=== PATIENT | male | born 1945 | race Caucasian/White ===

== ENCOUNTER 2016-09-13 10:31 | Inpatient (IN) | payer BC, MEDICARE ==
[~2016-09-13] VITALS: Ht 172.7 cm; Wt 93.7 kg
[2016-09-13] VITALS (21 sets, daily range): BP systolic 86–161; BP diastolic 56–93; PULSE 44–97; RESP 12–18; TEMP 96–98.5; O2SAT 94–100; Ht 172.7 cm; Wt 93.7 kg
[~2016-09-13 10:31] MED LIST: ACIT25CA3 PO; ASPI-557 PO; AZEL137S11 NAS; CEFAZOLIN 1 GRAM INJECTION IV ONE; CETI-269 PO; CLOB59LO TOP; HEPARIN SUB-Q 5,000 unit/0.5ml vial SQ ONE; LIDOCAINE 1% (10mg/ml) 2ml SDV INJ ONE
--- OUTSIDE RECORDS SUMMARY | 2016-09-13 10:36 | XMS REPORT ---
Author Author Jed Lehman Organization Unknown Address [address], [place] [id number] Phone Care Team Providers Care Pmo Project Manager Name Role Phone Maura GIORDANO PP Unavailable Unavailable Reason for Referral No Reason for Referral was given. Chief Complaint HCPA Text Box CC: 1 month f/u appt after heart cath. History of Present Illness No HPI available. Problems * Coronary Artery Disease Last Assessed: 10/29/2012 9:02:36 AM (414.00); (Active) * Benign Essential Hypertension Last Assessed: 10/29/2012 9:02:41 AM (401.1); (Active) * Hyperlipidemia Last Assessed: 10/29/2012 9:02:44 AM (272.4); (Active) * Normal Routine History And Physical Senior Citizen (65-80) (V70.0); ( Active) * Allergies (V15.09); (Active) * Taking High-risk Medication (V58.69); (Active) * Psoriasis (696.1); (Active) * Angioedema (995.1); (Active) * Urticaria (708.9); (Active) * Chest Pain (786.50); (Active) * Difficulty Breathing (Dyspnea) (786.09); (Active) Medication * Vitamins/Minerals Oral Tablet; zinc 50mg; Start Date: 12/17/2010 (Active) * Calcium 600 600 MG Oral Tablet; TAKE 1 TABLET DAILY.; Start Date: 08/11/2011 ( Active) * Vitamin D3 1000 UNIT Oral Capsule; TAKE DIRECTED.; Start Date: 08/11/2011 ( Active) * Clobetasol Propionate 0.05 % External Ointment; apply to affected areas bid prn, avoid groin; Start Date: 02/03/2012; End Date: (Active) * Methotrexate 2.5 MG Oral Tablet; TAKE FOUR TABLETS BY MOUTH ONCE A WEEK; Start Date: 12/24/2010; End Date: (Active) * Folic Acid 1 MG Oral Tablet; TAKE 1 TABLET DAILY.; Start Date: 01/31/2011; End Date: (Active) * Losartan Potassium-HCTZ 100-12.5 MG Oral Tablet; TAKE 1 TABLET BY MOUTH DAILY ; Start Date: 08/27/2012 (Active) * Pravastatin Sodium 40 MG Oral Tablet; TAKE 1 TABLET DAILY AT BEDTIME.; Start Date: 08/27/2012 (Active) * Aspirin 81 MG Oral Tablet; TAKE 1 TABLET DAILY.; Start Date: 10/08/2012 ( Active) * Brilinta 90 MG Oral Tablet; Take one tablet twice daily; Start Date: 2012 (Active) Allergies and Adverse Reactions * No Known Drug Allergies (Active) Past Medical History * No Significant Medical History Family History * Family history of Hay Fever (Active) * Paternal history of Stroke Syndrome (V17.1); (Active) * Maternal history of Stroke Syndrome (V17.1); (Active) Social History * Racial Background (___ %) (Active) * Never A Smoker (Active) * Alcohol Use (Active) * Marital History - Currently (Active) * Retired From Work (Active) Vital Signs Date Description Test Result 29 Oct 2012 08:51 AM recorded by: Mary Gamez BP Systolic 128 mm[Hg] BP Diastolic 88 mm[Hg] Pulse Regular Heart Rate 60 /min Treatment Plan * CP Dobutamine Echo 09/24/2012 Routine * CP Echo 09/24/2012 Routine Advance Directives * No Advance Directives available. Encounters * Appointment 10/29/2012 * RTNPT , Provider: Thad Cross, Status: Justino , Time: 8:30 AM 07/2012 * RTNPT , Provider: Dominik Adkins, Status: Justino , Time: 9:15 AM 2012
--- OUTSIDE RECORDS SUMMARY | 2016-09-13 10:36 | XMS REPORT | Summary of Care ---
Author Author Tay Oneil M.D. Unknown Address [address] [place], [place] [id number] Phone Unavailable Care Team Providers Care Lime Hide Inspector Name Role Phone Jed Lehman D.O. Unavailable Unavailable Ramila Oneil M.D. Unavailable Unavailable Tiffanie Hilton PP Unavailable Unavailable Unavailable Functional Status Functional Status Health Issues* Name Dates Details Functional status health issues are not documented Status: Cognitive Status Health Issues* Name Dates Details Cognitive status health issues are not documented Status: Problems Name Dates Details Difficulty breathing (786.09, R06.89) Status: Active History of allergy (V15.09, Z88.9) Status: Active Angioedema (995.1, T78.3XXA) Status: Active Psoriasis (696.1, L40.9) Status: Active Urticaria (708.9, L50.9) Status: Active Chest pain (786.50, R07.9) Status: Active High risk medication use (V58.69, Z79.899) Status: Active Atherosclerotic heart disease of [place] coronary artery without angina pectoris (414.01, I25.10) Status: Active Hyperlipidemia (272.4, E78.5) Status: Active Benign essential hypertension (401.1, I10) Status: Active Obesity (BMI 30.0-34.9) (278.00, E66.9) Status: Active Medications Name Dates Details Methotrexate 2.5 MG Oral Tablet TAKE FOUR TABLETS BY MOUTH ONCE A WEEK Quantity: 48 Tay Oneil M.D.* Started ActiveFolic Acid 1 MG Oral Tablet TAKE 1 TABLET DAILY. * Quantity: 30 Refills: 11 Tay Oneil M.D.* Started 31-Jan-2011 ActiveClobetasol Propionate 0.05 % External Ointment apply to affected areas bid prn, avoid groin * Quantity: 1 Refills: 5 Tay Oneil M.D.* Started 03-Feb-2012 [id number] GM Tube Losartan Potassium-HCTZ 100-12.5 MG Oral Tablet TAKE 1 TABLET BY MOUTH DAILY * Quantity: 30 Refills: 4 * Started 27-Aug-2012 ActivePravastatin Sodium 40 MG Oral Tablet TAKE 1 TABLET DAILY AT BEDTIME. * Refills: 0 * Started 27-Aug-2012 ActiveAspirin 81 MG Oral Tablet TAKE 1 TABLET DAILY. * Quantity: 30 Refills: 0 Jed Lehman D.O.* Started 08-Oct-2012 Active Allergies and Adverse Reactions Name Dates Details No Known Drug Allergies Status: Active Procedures Procedure Dates Details History of Coronary Angiography Without Concomitant Left Heart Catheterization Completed:12-Oct-2012 Procedures not documented Immunization Name Dates Details Immunizations not documented Family History Unknown Family Member* Name Dates Details Family history of Hay Fever Comments: Family History Status: Active Mother* Name Dates Details Family history of Stroke Syndrome (V17.1) Status: Active Father* Name Dates Details Family history of Stroke Syndrome (V17.1) Status: Active Social History Name Dates Details Smoking Status* Never smoker Vital Signs Date Test Result Details No Known Vitals to report Results Date Description Value Details Results not documented Plan of Care Planned Observations* Name Dates Details Planned Goals not documented Goal Planned Encounters* Appointment; Provider: Tay Oneil On 28-Sep-2015 08:30 * Appointment; Provider: Amador Tillman On 30-Mar-2015 09:00 * Appointment; Provider: Jed Lehman On 12-Oct-2012 12:30 Instructions * Instructions not documented Encounters Appointment; Tay Oneil Encounter Diagnosis: Problem not documented On 25-Sep-2014 08:30 Appointment; Amador Tillman Encounter Diagnosis: Problem not documented On 31-Mar-2014 10:30 Appointment; Jed Lehman Encounter Diagnosis: Problem not documented On 28-Oct-2013 09:30 Appointment; Tay Oneil Encounter Diagnosis: Problem not documented On 19-Sep-2013 08:30 Appointment; Jed Lehman Encounter Diagnosis: Problem not documented On 29-Apr-2013 11:30 Appointment; Tay Oneil Encounter Diagnosis: Problem not documented On 20-Mar-2013 08:30 Appointment; Jed Lehman Encounter Diagnosis: Problem not documented On 29-Oct-2012 08:45 Appointment; Jed Lehman Encounter Diagnosis: Problem not documented On 08-Oct-2012 10:45
--- OUTSIDE RECORDS SUMMARY | 2016-09-13 10:36 | XMS REPORT | Summary of Care ---
Author Author Amador Tillman M.D. Unknown Address [address] [place] [address] Phone Unavailable Care Team Providers Care Towel Cabinet Repairer Name Role Phone Jed Lehman D.O. Unavailable Unavailable Ramila Oneil M.D. Unavailable Unavailable Tiffanie Hilton PP Unavailable Unavailable Unavailable Functional Status Functional Status Health Issues* Name Dates Details Functional status health issues are not documented Status: Cognitive Status Health Issues* Name Dates Details Cognitive status health issues are not documented Status: Problems Name Dates Details History of allergy (V15.09, Z88.9) Status: Active Angioedema (995.1, T78.3XXA) Status: Active Urticaria (708.9, L50.9) Status: Active High risk medication use (V58.69, Z79.899) Status: Active Psoriasis (696.1, L40.9) Status: Active Atherosclerotic heart disease of [place] coronary artery without angina pectoris (414.01, I25.10) Status: Active Benign essential hypertension (401.1, I10) Status: Active Hyperlipidemia (272.4, E78.5) Status: Active Obesity (BMI 30.0-34.9) (278.00, E66.9) Status: Active Medications Name Dates Details Methotrexate 2.5 MG Oral Tablet TAKE FOUR TABLETS BY MOUTH ONCE A WEEK Quantity: 48 Tay Oneil M.D.* Started ActiveFolic Acid 1 MG Oral Tablet TAKE 1 TABLET DAILY. * Quantity: 30 Refills: 11 Tay Oneil M.D.* Started 31-Jan-2011 ActiveLosartan Potassium-HCTZ 100-12.5 MG Oral Tablet TAKE 1 TABLET BY MOUTH DAILY * Quantity: 30 Refills: 4 * Started 27-Aug-2012 ActivePravastatin Sodium 40 MG Oral Tablet TAKE 1 TABLET DAILY AT BEDTIME. * Refills: 0 * Started 27-Aug-2012 ActiveAspirin 81 MG Oral Tablet TAKE 1 TABLET DAILY. * Quantity: 30 Refills: 0 Jed Lehman D.O.* Started 08-Oct-2012 ActiveAzelastine HCl - 0.1 % Nasal Solution INSERT 2 SQUIRTS IN EACH NOSTRIL TWICE DAILY * Refills: 0 * Started 30-Mar-2015 ActiveCetirizine HCl - 10 MG Oral Tablet TAKE 1 TABLET DAILY. * Refills: 0 * Started 30-Mar-2015 ActiveClotrimazole 1 % External Cream APPLY 2-3 TIMES DAILY TO AFFECTED AREA(S). * Refills: 0 * Started 30-Mar-2015 Active Allergies and Adverse Reactions Name Dates Details No Known Drug Allergies Status: Active Past Medical History Name Dates Details History of chest pain (V13.89, Z87.898) Status: Resolved History of Difficulty breathing (786.09, R06.89) Status: Resolved Procedures Procedure Dates Details History of Coronary [...] smoker Vital Signs Date Test Result Details 30-Mar-2015 08:54 BP Systolic 130 mm[Hg] Status: BP Diastolic 84 mm[Hg] Status: Heart Rate 56 /min Status: Weight 213.0 lb Status: Body Mass Index Calculated 32.87 kg/m2 Status: Body Surface Area Calculated 2.09 m2 Status: Results Date Description Value Details Results not documented Plan of Care Planned Observations* Name Dates Details Planned Goals not documented Goal Planned Encounters* Appointment; Provider: Amador Tillman On 30-Mar-2016 09:00 * Appointment; Provider: Tay Oneil On 28-Sep-2015 08:30 * Appointment; Provider: Jed Lehman On 12-Oct-2012 12:30 Instructions * Instructions not documented Encounters Appointment; Amador Tillman Encounter Diagnosis: Problem not documented On 30-Mar-2015 09:00 Appointment; Tay Oneil Encounter Diagnosis: Problem not documented On 25-Sep-2014 08:30 Appointment; Amador Tillman Encounter Diagnosis: Problem not documented On 31-Mar-2014 10:30 Appointment; Jed Lehman Encounter Diagnosis: Problem not documented On 28-Oct-2013 09:30 Appointment; Tay Oneil Encounter Diagnosis: Problem not documented On 19-Sep-2013 08:30 Appointment; Jed Lehman Encounter Diagnosis: Problem not documented On 29-Apr-2013 11:30
--- OUTSIDE RECORDS SUMMARY | 2016-09-13 10:36 | XMS REPORT | Summary of Care ---
Author Author Primo Recinos, Amador Ontiveros Unknown Address [address] [place] [address] Phone Unavailable Care Team Providers Care Offal Worker Name Role Phone Jed Lehman D.O. Unavailable [...] Z79.899) Status: Active Atherosclerotic heart disease of [place] coronary artery without angina pectoris (414.01, I25.10) [...] 1 TABLET DAILY. * Quantity: 30 Refills: 8 Tay Oneil M.D.* Started 31-Jan-2011 ActiveClobetasol Propionate 0.05 % External Ointment apply to affected areas bid prn, avoid groin * Quantity: 1 Refills: 5 Tay Oneil M.D.* Started 03-Feb-2012 [id number] GM Tube Losartan Potassium-HCTZ 100-12.5 MG Oral [...] Planned Encounters* Appointment; Provider: Amador Tillman On 30-Mar-2015 09:00 * Appointment; Provider: Tay Oneil On 25-Sep-2014 08:30 * Appointment; Provider: Jed Lehman On [...] Diagnosis: Problem not documented On 08-Oct-2012 10:45 Appointment; Tay Oneil Encounter Diagnosis: Problem not documented On 17-Sep-2012 08:30 Appointment; Jed Lehman Encounter Diagnosis: Problem not documented On 27-Aug-2012 10:45
--- OUTSIDE RECORDS SUMMARY | 2016-09-13 10:36 | XMS REPORT | Summary of Care ---
Author Author Tay Oneil M.D. Unknown Address [address] [place], [place] [id number] Phone Unavailable Care Team Providers Care Green Building Energy Engineer Name Role Phone Jed Lehman D.O. Unavailable [...] L40.9) Status: Active Atherosclerotic heart disease of [place] coronary artery without angina pectoris (414.01, I25.10) Status: Active Benign essential hypertension (401.1, I10) Status: Active Hyperlipidemia (272.4, E78.5) Status: Active Obesity (BMI 30.0-34.9) (278.00, E66.9) Status: Active Medications Name Dates Details Methotrexate 2.5 MG Oral Tablet TAKE FOUR TABLETS BY MOUTH ONCE A WEEK Quantity: 48 Tay Oneil M.D.* Started ActiveFolic Acid 1 MG Oral Tablet TAKE ONE TABLET BY MOUTH ONCE DAILY * Quantity: 90 Refills: 0 Tay Oneil M.D.* Started 31-Jan-2011 ActivePravastatin Sodium 40 MG Oral Tablet TAKE [...] Planned Encounters* Appointment; Provider: Tay Oneil On 26-Sep-2016 10:30 * Appointment; Provider: Jed Lehman On 12-Oct-2012 12:30 Instructions * Instructions not documented Encounters Appointment; Tay Oneil Encounter Diagnosis: Problem not documented On 25-Sep-2015 08:30 Appointment; Amador Tillman Encounter Diagnosis: Problem not documented On 30-Mar-2015 09:00 Appointment; Tay Oneil Encounter Diagnosis: Problem not documented On 25-Sep-2014 08:30 Appointment; Amador Tillman Encounter Diagnosis: Problem not documented On 31-Mar-2014 10:30 Appointment; Jed Lehman Encounter Diagnosis: Problem not documented On 28-Oct-2013 09:30
[2016-09-13 11:22] LABS: BASOPHILS % (AUTO) 0.7 % (0-2); EOSINOPHILS # (AUTO) 0.1 T/MM3 (0-0.5); EOSINOPHILS % (AUTO) 1.7 % (0-4); HCT - HEMATOCRIT 47.4 % (41-53); IMMATURE GRANULOCYTE # (AUTO) 0.01 T/MM3 (0.00-0.03); IMMATURE GRANULOCYTE % (AUTO) 0.2 % (0.0-0.5); LYMPHOCYTES # (AUTO) 1.6 T/MM3 (1-4.8); LYMPHOCYTES % (AUTO) 27.1 % (23-45); MEAN CORPUSCULAR HGB 32.2 UUG (26-34); MEAN CORPUSCULAR HGB CONC(MCHC 33.8 GM/DL (31-37); MEAN CORPUSCULAR VOLUME 95.4 UM3 (80-100); MEAN PLATELET VOLUME 11.4 UM3 (9.4-12.4); MONOCYTES # (AUTO) 0.4 T/MM3 (0-0.8); MONOCYTES % (AUTO) 7.5 % (0-9.0); NEUTROPHILS #(AUTO)-ABSOLUTE 3.6 T/MM3 (1.8-7.7); NEUTROPHILS % (AUTO) 62.8 % (33-66); RED BLOOD COUNT 4.97 M/MM3 (4.50-5.90); WBC - WHITE BLOOD COUNT 5.7 T/MM3 (4.5-11.0)
[2016-09-13 11:32] LABS: ANION GAP 9 MEQ/L (5-15); BUN/CREATININE RATIO 12 RATIO (6-26); CALCIUM 9.6 MG/DL (8.4-10.2); CHLORIDE 107 MEQ/L (98-107); CO2 - CARBON DIOXIDE 27 MEQ/L (22-30); CREATININE 1.1 MG/DL (0.8-1.5); GLOMERULAR FILTRATION RATE 66; GLUCOSE 100 MG/DL (75-110); POTASSIUM 4.6 MEQ/L (3.6-5); SODIUM 143 MEQ/L (134-144)
--- NOTE | 2016-09-13 11:42 | ANESPREOP ---
Anesthesia Record Date and Time DATE: 09/13/16 TIME: 11:38 Pre-Op Diagnosis prostate ca Proposed Surgical Procedure ROBOTIC RADICAL PROSTATECTOMY NPO since: mn Allergies: Coded Allergies: No Known Drug Allergies (Verified Allergy, Unknown, 09/12/16) Ht/Wt/BMI Height: 5 ' 8.00 " Weight: 92.500 kg BMI: 31.0 kg/m2 Vital Signs Date Time Temp Pulse Resp B/P Pulse Ox O2 Delivery O2 Flow Rate FiO2 09/13/16 11:24 54 09/13/16 11:11 98.5 14 161/88 98 Room Air Medications Acitretin (Acitretin) 25 Mg Capsule, 1 CAP PO DAILY, (Reported) Last Taken: on 09/12/162099 Aspirin (Aspir 81) 81 Mg Tablet.dr, 1 TAB PO DAILY, (Reported) Last Taken: on 09/05/16 Azelastine HCl (Azelastine HCl) 137 Mcg/0.137 Ml Bowie.pump, 2 SPRAY SYLVIA BID PRN for PRN ORDERS, (Reported) Last Taken: on Unknown Date & Time Cetirizine HCl (Cetirizine HCl) 10 Mg Tablet, 1 TAB PO DAILY, (Reported) Last Taken: on 09/12/162099 Clobetasol Propionate (Clobex) 59 Applic/59 Ml Lotion, 1 UNIT TOP DAILY PRN for PRN ORDERS, (Reported) Last Taken: on 09/11/16 Currently on Beta Andrew: No Medical/Surgical History Anesthesia PMH: Reports: *Hypertension (PER H&P), Arthritis (KNEES,HANDS), Cancer (PROSTATE), Denies: *Diabetes, Anesthesia Reactions (NO AIRWAY ISSUES), Clotting Problems, Glaucoma, Malignant Hyperthermia, Renal Disease, Thyroid Disease Smoking Status: Never smoker Has pt. smoked today?: No Use Chewing Tobacco?: No Second Hand Exposure: No Substance Use Type: does not use Alcohol Intake: daily Last Drink: days (ago) Past Surgical History Orthopedic Surgeries: Yes - R KNEE SCOPE Abdominal Surgeries: Genitourinary Surgeries: Cardiac Surgeries: Yes - HEART CATH WITH STENT Endocrine Surgeries: Reproductive Surgeries: Neurological Surgeries: Ear Surgeries: Nose Surgeries: Throat Surgeries: Other Surgeries: Anesthesia Adverse Reactions: FOUND none Pertinent Findings Laboratory Tests 09/13/16 11:07 EKG Rhythm: Sinus Rhythm Physical Exam Respiratory: Bilat breath sounds equal, Lungs clear Cardiovascular: FOUND Regular rate, rhythm, FOUND No murmur Airway Assessment Mallampati Score: III TMD: 3 Fingerbreadths Neck Extension: Fair Overall Assessment: May Be Diff Intubation ASA: 3 Plan Anesthesia Plan: GETA Discussion Discussed risks/options/alternatives of anesthesia and questions answered. Patient consents. Nursing pain assessment noted. Attestation Statement Prior to the delivery of any anesthetic medication, I examined the patient, developed the plan, obtained the patient's consent and discussed the risk and benefits of the procedure with the patient/guardian. SARAH CRUMP PROJECT SUPERINTENDENT Sep 13, 2016 11:41
[2016-09-13] MEDS ORDERED: SCOPOLAMINE 1.5 MG PATCH TD ONE (11:45)
[2016-09-13] MEDS ORDERED: LR 1,000 ML IV PRN (11:52)
[2016-09-13] MEDS ORDERED: LIDOCAINE JELLY 2% 20ml UROJET MM ONE (12:21)
[2016-09-13] MEDS ORDERED: BUPIVACAINE 0.25%/EPI 1:200,000 30ml SDV ONE (14:51)
[2016-09-13] MEDS ORDERED: OXYBUTYNIN IR 5 MG TABLET PO PRN (15:00)
[2016-09-13] MEDS ORDERED: MORPHINE SULFATE 4 MG SYRINGE IV PRN (15:00)
[2016-09-13] MEDS ORDERED: ONDANSETRON 4mg/2ml INJECTION IV PRN ×2 (15:00→19:15)
[2016-09-13] MEDS ORDERED: BISACODYL 10 MG SUPPOSITORY RECTALLY PRN (15:00)
[2016-09-13] MEDS ORDERED: MILK OF MAGNESIA 30 ML SUSP PO PRN (15:00)
[2016-09-13] MEDS ORDERED: KETOROLAC 15mg/ml INJECTION IV PRN (15:00)
[2016-09-13] MEDS ORDERED: PROMETHAZINE 50 MG INJECTION IM PRN (15:00)
[2016-09-13] MEDS ORDERED: PROMETHAZINE 25 MG TABLET PO PRN (15:00)
[2016-09-13] MEDS ORDERED: PROPOFOL 200mg 20 ML IV ONE (15:15)
[2016-09-13] MEDS ORDERED: FENTANYL 250mcg/5ml INJECTION ONE (15:15)
[2016-09-13] MEDS ORDERED: ROCURONIUM 50mg/5ml INJECTION IV ONE (15:15)
[2016-09-13] MEDS ORDERED: EPHEDRINE SULFATE 50mg/ml INJECTION ONE (15:29)
[2016-09-13] MEDS ORDERED: VECURONIUM 10mg/10ml INJECTION IV ONE (16:14)
[2016-09-13] MEDS ORDERED: DESFLURANE 240 ML LIQUID IH ONE (16:16)
[2016-09-13] MEDS ORDERED: HYDROMORPHONE 2mg/ml INJECTION ONE (16:50)
[2016-09-13] MEDS ORDERED: DEXAMETHASONE 4mg/ml - 1ml INJECTION ONE (16:51)
[2016-09-13] MEDS ORDERED: ONDANSETRON 4mg/2ml INJECTION ONE (16:51)
--- NOTE | 2016-09-13 19:05 | NUR ---
orders dr. delgado called this rn and gave orders via telephone for pt to sit in chair tonight, Clear liquids for tonight and regular diet for breakfast. no other orders at this time.
[2016-09-13] MEDS ORDERED: METOCLOPRAMIDE 10mg/2ml INJECTION IV PRN (19:15)
[2016-09-13] MEDS ORDERED: HYDROMORPHONE 2mg/ml INJECTION IV PRN (19:15)
--- NOTE | 2016-09-13 19:18 | ANESPO ---
Post-Op Note Date 09/13/16 Time: 19:17 Status Pt Participated in Evaluation: Pt participated in person Vital Signs Date Time Temp Pulse Resp B/P Pulse Ox O2 Delivery O2 Flow Rate FiO2 09/13/16 14:41 44 14 148/82 98 Room Air 09/13/16 11:11 98.5 Respiratory Function: Airway patent Cardiovascular Function: Regular pulse Telemetry Pattern: SR Mental Status: Alert/oriented Pain Level Intensity: 0 Hydration: IV infusing Complications during Recovery None apparent Follow-Up Instructions Instructions Per Surgeon MARKO CORRAL CRNA Sep 13, 2016 19:18
--- NOTE | 2016-09-13 19:35 | NUR ---
report report received from jay lama in pacu at this time.
--- NOTE | 2016-09-13 19:45 | NUR ---
admit pt admitted to room 108 via cart from pac[facility] at this time.
[2016-09-13] MEDS: D5-1/2 NS KCL 20 MEQ 1,000 ML IV SCH ×2 (20:23→22:50)
[2016-09-13] MEDS: SENNA + DOCUSATE TAB PO SCH (21:15)
--- NOTE | 2016-09-14 01:38 | NUR ---
Chart Check 24 hour chart check completed
--- NOTE | 2016-09-14 02:10 | NUR ---
low output I notified dr. delgado of pts low output via sp and deras catheter. pt had output of 60ml in 3 hours, rn irrigated with 50ml sterile ns-with results of 125ml. dr. delgado said we will wait and see if output increases and call at 0600 if urine output < 20ml/hr. this rn verbalized understanding and orders implemented. will continue to monitor.
[2016-09-14 04:04] VITALS: BP 111/57; PULSE 52; RESP 14; TEMP 97.8; O2SAT 98
[2016-09-14 04:50] VITALS: O2SAT 97
[2016-09-14 04:53] VITALS: O2SAT 94
--- NOTE | 2016-09-14 06:05 | NUR ---
shift summary pt has slept off and on during the night. pt given toradol for pain, see emar for times. pt denies need for pain meds since toradol given. denies n/v/soa. pt has tolerated clear liquids throughout the night. deras catheter output of 675 this am. kirt drain with a total of 100ml of sangineous fluid. dressing on suprapubic catheter c/d/i. ivl in left hand. vss, pt on ra at this time, previously 1L o2 overnight. bed locked and low, bed alarm on. call light within reach. will continue to monitor.
[2016-09-14 06:14] LABS: HCT - HEMATOCRIT 38.5 % (41-53)
[2016-09-14 06:25] LABS: ANION GAP 7 MEQ/L (5-15); BUN/CREATININE RATIO 14 RATIO (6-26); CALCIUM 8.3 MG/DL (8.4-10.2); CHLORIDE 105 MEQ/L (98-107); CO2 - CARBON DIOXIDE 27 MEQ/L (22-30); GLOMERULAR FILTRATION RATE 74; GLUCOSE 149 MG/DL (75-110); MAGNESIUM 2.6 MG/DL (1.6-2.3); POTASSIUM 5.1 MEQ/L (3.6-5); SODIUM 139 MEQ/L (134-144)
[2016-09-14] MEDS: D5-1/2 NS KCL 20 MEQ 1,000 ML IV SCH (06:50)
[2016-09-14] MEDS: ACETAMINOPHEN 325 MG TABLET PO PRN ×2 (07:38→15:27)
[2016-09-14 07:44] VITALS: BP 117/69; PULSE 57; RESP 15; RESP 16; TEMP 97.5; O2SAT 96
[2016-09-14] MEDS: SENNA + DOCUSATE TAB PO SCH (08:31)
[2016-09-14 12:18] VITALS: BP 132/71; PULSE 64; RESP 16; TEMP 96.8; O2SAT 99
[2016-09-14] MEDS ORDERED: PNEUMOCOCCAL 13 VACCINE 0.5 ML SYRINGE IM ONE (14:30)
[2016-09-14] MEDS ORDERED: PNEUMOCOCCAL VAC. ADMIN. CHARGE INJ ONE (15:00)
[2016-09-14] MEDS ORDERED: THROMBIN 5000 UNIT TOP ONE (15:17)
[2016-09-14 16:00] VITALS: BP 134/77; PULSE 65; RESP 18; TEMP 97.5; O2SAT 97
--- NOTE | 2016-09-14 16:10 | DSPDOC ---
General Date Date DATE: 09/14/16 TIME: 16:05 Attending Physician Buck Mann Admitting Physician Buck Mann Consulting Physician Admitting Diagnosis prostate cancer Discharge Diagnosis Same Procedures RALRP with BPLND and SP tube placement Laboratory Laboratory Tests Test 09/13/16 11:07 09/14/16 04:00 09/14/16 05:37 White Blood Count 5.7T/MM3 (4.5-11.0) Red Blood Count 4.97M/MM3 (4.50-5.90) Hemoglobin 16.0GM/DL (13.5-17.5) 13.0GM/DL (13.5-17.5) Hematocrit 47.4% (41-53) 38.5% (41-53) Mean Corpuscular Volume 95.4UM3 (80-100) Mean Corpuscular Hemoglobin 32.2UUG (26-34) Mean Corpuscular Hemoglobin Concent 33.8GM/DL (31-37) RDW Standard Deviation 44.3FL (36.9-50.2) Platelet Count 155T/MM3 (130-400) Mean Platelet Volume 11.4UM3 (9.4-12.4) Immature Granulocyte % (Auto) 0.2% (0.0-0.5) Neutrophils (%) (Auto) 62.8% (33-66) Lymphocytes (%) (Auto) 27.1% (23-45) Monocytes (%) (Auto) 7.5% (0-9.0) Eosinophils (%) (Auto) 1.7% (0-4) Basophils (%) (Auto) 0.7% (0-2) Absolute Immature Granulocyte (auto 0.01T/MM3 (0.00-0.03) Absolute Neutrophils (auto) 3.6T/MM3 (1.8-7.7) Absolute Lymphocytes (auto) 1.6T/MM3 (1-4.8) Absolute Monocytes (auto) 0.4T/MM3 (0-0.8) Absolute Eosinophils (auto) 0.1T/MM3 (0-0.5) Absolute Basophils (auto) 0.0T/MM3 (0-0.2) Turbidity < 20 (0-20) < 20 (0-20) Sodium Level 143MEQ/L (134-144) 139MEQ/L (134-144) Potassium Level 4.6MEQ/L (3.6-5) 5.1MEQ/L (3.6-5) Chloride Level 107MEQ/L (98-107) 105MEQ/L (98-107) Carbon Dioxide Level 27MEQ/L (22-30) 27MEQ/L (22-30) Anion Gap 9MEQ/L (5-15) 7MEQ/L (5-15) Blood Urea Nitrogen 13.0MG/DL (9-20) 14.0MG/DL (9-20) Creatinine 1.1MG/DL (0.8-1.5) 1.0MG/DL (0.8-1.5) Glomerular Filtration Rate Calc 66 74 BUN/Creatinine Ratio 12RATIO (6-26) 14RATIO (6-26) Glucose Level 100MG/DL (75-110) 149MG/DL (75-110) Calculated Osmolality 275MOSM/KG (261-280) 272MOSM/KG (261-280) Calcium Level 9.6MG/DL (8.4-10.2) 8.3MG/DL (8.4-10.2) Icterus Index < 2 (0-7) < 2 (0-7) Chemistry Specimen Hemolysis < 15 (0-25) < 15 (0-25) Body Fluid Type Carlos drain Body Fluid Creatinine 0.9mg/dL Magnesium Level 2.6MG/DL (1.6-2.3) History of Present Illness Onesimo is a 70 [address] patient of Dr[address] Mann'tere who has a history of prostate cancer and was on active surveillance. He had a recent elevation in his PSA and has chosen to undergo RALRP to remove the prostate. Hospital Course Patient was admitted to [facility] and underwent RALRP with BPLND and SP tube placement. He tolerated the procedure well and was transferred to the surgical floor where he has progressed well. He is now up ambulating well, pain is controlled, and he is tolerating PO intake well with no N/V. To discharge home today with SP tube and following CARLOS and Lopez catheter removal. Leg bag teaching will be provided as well as SP tube care. Problems: Code Status Full Code, unverified Home Meds Reported Medications Clobetasol Propionate (Clobex) 59 Applic/59 Ml Lotion, 1 UNIT TOP DAILY Y for PRN ORDERS 09/12/16 Aspirin (Aspir 81) 81 Mg Tablet.dr, 1 TAB PO DAILY, TAB 09/12/16 Azelastine HCl (Azelastine HCl) 137 Mcg/0.137 Ml Remus.pump, 2 SPRAY SYLVIA BID Y for PRN ORDERS, #90 ML 3 Refills 09/12/16 Cetirizine HCl (Cetirizine HCl) 10 Mg Tablet, 1 TAB PO DAILY, TAB 09/12/16 Acitretin (Acitretin) 25 Mg Capsule, 1 CAP PO DAILY 09/12/16 Face to Face Encounter I met with patient on the day of dismissal and discussed follow up appointments , medications, and safety plan. Discharge Disposition To home. Scripts for pain medications on chart. Copies To 1: BUCK MANN NICHOLAS L APRN Sep 14, 2016 16:09
--- NOTE | 2016-09-14 17:15 | NUR ---
CM TAYLOR SCORE IS 7 Addendum: 09/14/16 at 1715 by MARVIN ROQUE Amended: Links added.
--- NOTE | 2016-09-14 17:16 | NUR ---
CM SPOKE WITH PT, AND WAS PRESENT WITH PT'S PERMISSION. INTRODUCED SELF, EXPLAINED ROLE, PROVIDED CONTACT INFO. PT SAID HE HOPES HE CAN LEAVE TODAY. HE AND LIVE IN [place], AND HE SAID HIS DC PLAN IS TO RETURN HOME. PT AND DENIED ANY DC NEEDS OR CONCERNS. ENCOURAGED THEM TO CALL IF SOME DO ARISE, AND THEY SAID OK. Addendum: 09/14/16 at 1719 by MARVIN ROQUE Amended: Links added.
[2016-09-14] MEDS ORDERED: OXYB5TAB10 PO (17:31)
[2016-09-14] MEDS ORDERED: SENN8.6T94 PO (17:31)
[2016-09-14] MEDS ORDERED: HYDR-4010 PO (17:31)
--- NOTE | 2016-09-14 19:20 | NUR ---
Discharge Pt was discharged at this time via ambulatory status through the main entrance in the company of an adult. IV catheter was DC'd prior to discharge, catheter tip intact. NOVA drain was DC'd, gauze and tape put in place. Urethral catheter was DC'd prior to discharge. Suprapubic catheter in place. Leg bag teaching was done with Pt and sent home with Pt. VS stable on RA. Discharge packet and instructions gone over with Pt. This RN discussed activity, restrictions, diet, medications, follow up appt, catheter care, dressing change and incision care. Prescription was sent with to take to Pts preferred pharmacy.
[2016-09-15] MEDS ORDERED: LIDOCAINE 1% (10mg/ml) 2ml SDV INJ ONE (07:00)
[2016-09-16] MEDS ORDERED: SCOPOLAMINE PATCH REMOVAL TD ONE (12:15)
--- NOTE | 2016-09-16 12:32 | OPNOTEF ---
DATE OF SERVICE 09/13/2016 PREOPERATIVE DIAGNOSIS Prostate cancer. POSTOPERATIVE DIAGNOSIS Prostate cancer. OPERATION PERFORMED Robotic assisted laparoscopic radical prostatectomy, bilateral pelvic lymphadenectomy, suprapubic cystostomy tube placement. SURGEON Buck Long MD VICE PRESIDENT [employer] Joseph Valdes APRN ANESTHESIA General COMPLICATIONS None. DRAINS #18 Danish Lopez. #12 Danish suprapubic tube #15 Danish NOVA drain INDICATIONS This is a 70-year-old gentleman who has been diagnosed with prostate cancer. He is on active surveillance but repeat biopsy showed increased burden of cancer and so he now presents for prostatectomy. On the multiplanar ____ MRI, there was a concerning BIRADS 4 lesion in the left apex. DESCRIPTION OF PROCEDURE After informed consent was obtained, the patient was brought to the operating room, general anesthesia was induced. He was placed in the lithotomy position and prepped and draped in the usual fashion. Time-out was held. He received preoperative IV antibiotics, subcutaneous heparin and SCDs. After the time-out and prepping and draping, we inserted a Lopez catheter per urethra and set it to gravity drainage. The skin above the umbilicus was anesthetized, it was opened sharply in a transverse manner and dissected down to the abdominal wall and a Veress needle passed through the incision into the peritoneal cavity, appropriate pops were felt. Using the aspiration/irrigation/aspiration test and the hanging drop test and then abdomen insufflated appropriately under low flow then high flow insufflation. Once pneumoperitoneum reached 15 mmHg, a dilating 10-12 mm laparoscopic trocar was passed through the incision into the peritoneal cavity. Diagnostic laparoscopy was carried out. There were a few adhesions of the sigmoid colon to the left pelvic sidewall. No other abnormalities were noted. Additional ports were placed including two 8 mm ports in the right lower quadrant and an 8 mm in left lower quadrant, a dilating 10-12 mm in the left lower quadrant and a 5 mm left upper quadrant port. The circulating air vent was placed to the port in the left lower quadrant. Robot was brought into position and docked. Sharp adhesiolysis was carried out to free the tethering sigmoid colon to the left pelvic sidewall. There was a small mesenteric vessel which was bleeding near that site which was oversewn with a 2-0 Vicryl in a [id number] fashion which controlled it. An incision was created low in the peritoneum in a transverse manner. The seminal vesicles and vas deferens were identified. The vas deferens were clipped proximally then dissected up to where they inserted in the prostate. The seminal vesicles were dissected out in a nonthermal fashion using multiple Hem-o-Cyndee clips for the vessels . I developed the space between the prostate and the rectum in a nonthermal fashion. There was tethering along most of the plane between the prostate and the rectum, it was just not as clean as usual. The preperitoneal space of Retzius was entered and developed by incising the peritoneum lateral to the obliterated umbilical arteries on either side of the anterior abdominal wall and the bladder was dropped away posteriorly. The preprostatic body tissue was excised and sent off as a specimen. The endopelvic fascia was opened on each side of the prostate. The pelvic floor musculature was swept away laterally. The most lateral portion of the complex was examined. The lateral portion of the puboprostatics was taken down to expose the DVC better. I suture ligated the DVC with a 2-0 V-Loc which is suspended to the undersurface of the pubic bone. We switched to a 30 degree lens for bladder neck dissection and bladder neck dissection proceeded in fairly forward fashion in a bladder neck-preserving manner. The posterior longitudinal fibers were divided. We retracted the prostate over to the patient's right side. The lateral prostatic fascia on the left was incised. The neurovascular bundle was peeled away appropriately. We began to divide the pedicle using multiple Hem-o-Cyndee clips. The tissue of the pedicles was quite tough and the clips wouldn't easily pass through it and so we had to separate into small packets and placed multiple Hem-o-Cyndee clips. Everything around the pedicle was just oozy, no arterial bleeding, just generalized ooze. We continued dissection in anterior fashion down as far as we could and then took down more tissue between the prostate and the rectum but there was still a bunch of tethering here. I retracted the prostate over to the other side prostatic fascia on the right was incised. Tissue plane wasn't as clean here even though the biopsies other side. The prostate was elevated, multiple Hem-o-Cyndee clips were placed on the pedicle, again the tissue plane not as crisp as what we would like. We continued the dissection in anterior fashion as far distally as we could and we took down everything posterior to the prostate also. The prostate was then placed under gentle retraction. The dorsal venous complexes addressed with bipolar and then divided. The urethra was dissected out sharply. The rectourethralis was fairly thickened and it was divided sharply. The prostate inspected. The tissue planes along the right base were just not as crisp and clean as usual but it looked to be mostly an inflammatory process. The tissue which was left all appeared fine. Bilateral pelvic lymphadenectomies were undertaken to the typical boundaries of the external iliac vein, the obturator nerve, the node of [place], the bifurcation of the iliac vessels, the pelvic sidewall and the bladder. The right side was demarcated with a clip. Everything was placed in a retrieval sack. We made sure there was good hemostasis. There was no arterial bleeding. There was some generalized ooze along the neurovascular bundles. We placed some Surgiflo along this. A robotic Gigi suture was placed between the posterior longitudinal fibers and the rectourethralis in a continuous fashion using a 2-0 V-Loc. The urethral anastomosis was undertaken with two 3-0 V-Loc which were interloped. After five throws, I was able to cinch the bladder down to the urethra but before that, it didn't really want to come down very well, but after that, it opposes quite well. The anastomosis was completed, a new Lopez catheter was inserted. The bladder was fully distended and there was no evidence of leak. A small incision was created suprapubically. A Malecot suprapubic tube was passed through the suprapubic incision into the extraperitoneal dome of the bladder and set to gravity drainage. It irrigates freely as does the catheter. A 2-0 Vicryl drain suture from the skin down around the bladder and back to the skin. A drain was placed through the most right lateral port site and secured . The ports were removed under visual guidance. The supraumbilical incision was enlarged, the specimen was extracted through that within the sack. The fascia of that incision was closed with interrupted [id number] 0 PDS. The wounds were injected with local, closed with 4-0 Monocryl and Dermabond. The patient was then awoke from his anesthetic, having tolerated the procedure without intraoperative complications. ANMOL
== END 2016-09-14 19:20 | disposition home or self-care (01) | DRG 708 ==
LOC: SRG 10:31
PROVIDERS: ADMIT Urology; ATTEND Urology
PROC: 0VT34ZZ Resection of Bilateral Seminal Vesicles, Percutaneous Endoscopic Approach (ICD-10-PCS; 2016-09-13)
PROC: 8E0W4CZ Robotic Assisted Procedure of Trunk Region, Percutaneous Endoscopic Approach (ICD-10-PCS; 2016-09-13)
PROC: 0VBQ4ZZ Excision of Bilateral Vas Deferens, Percutaneous Endoscopic Approach (ICD-10-PCS; 2016-09-13)
PROC: 0T9B40Z Drainage of Bladder with Drainage Device, Percutaneous Endoscopic Approach (ICD-10-PCS; 2016-09-13)
PROC: 0VT04ZZ Resection of Prostate, Percutaneous Endoscopic Approach (ICD-10-PCS; principal; 2016-09-13 12:00)
PROC: 3E0234Z Introduction of Serum, Toxoid and Vaccine into Muscle, Percutaneous Approach (ICD-10-PCS; 2016-09-14)
DX: C61 Malignant neoplasm of prostate (principal); I10 Essential (primary) hypertension; E78.00 Pure hypercholesterolemia, unspecified; Z79.899 Other long term (current) drug therapy; Z79.82 Long term (current) use of aspirin; Z23 Encounter for immunization
CPT/HCPCS: 36415; 80048; 82570; 83735; 85014; 85018; 85025; 86850; 86900; 86901; 99406